=== PATIENT | female | born 1985 | race Hispanic/Latino ===

== ENCOUNTER 2017-08-10 22:02 | Inpatient (IN) | payer SELFPAY ==
[~2017-08-10] VITALS: Ht 172.7 cm; Wt 111.9 kg
[2017-08-10 22:35] LABS: BASOPHILS % (AUTO) 0.7 % (0.0-5.0); EOSINOPHILS % (AUTO) 0.7 % (0.0-8.0); HEMATOCRIT 35.3 % (36-48); LYMPHOCYTES % (AUTO) 13.4 % (21.0-51.0); MEAN CORPUSCULAR HEMOGLOBIN 23.4 pg (27.0-33.0); MEAN CORPUSCULAR HGB CONC 33.1 g/dL (32.0-36.0); MEAN CORPUSCULAR VOLUME 70.5 fL (79-99); MONOCYTES % (AUTO) 6.2 % (3.0-13.0); PLATELET COUNT (AUTO) 354 K/uL (130-400); RED BLOOD CELL COUNT(AUTO) 5.01 MIL/uL (4.00-5.50); RED CELL DISTRIBUTION WIDTH 14.4 % (11.0-15.5); WHITE BLOOD COUNT (AUTO) 8.5 K/uL (4.8-10.8)
[2017-08-10 22:43] LABS: APPEARANCE,URINE Cloudy (CLEAR); BILIRUBIN,URINE Negative (NEGATIVE); COLOR,URINE Yellow (YELLOW); GLUCOSE, URINE (UA) >=1000 mg/dL (NEGATIVE); KETONES,URINE Negative (NEGATIVE); LEUKOCYTE ESTERASE ,URINE Moderate (NEGATIVE); NITRATE,URINE Positive (NEGATIVE); OCCULT BLOOD,URINE Small (NEGATIVE); PROTEIN,URINE POS 1+ (NEGATIVE); UROBILINOGEN,URINE 0.2 mg/dL (0.2-1.0)
[2017-08-10 22:47] LABS: HCG,QUAL RESULT NEGATIVE (NEGATIVE)
[2017-08-10 22:51] LABS: CARBON DIOXIDE 25 mmol/L (21-32); CHLORIDE 96 mmol/L (101-111); GLOMERULAR FILTR. RATE CALC 67 mL/min (>60); GLUCOSE,RANDOM 387 mg/dL (70-105); POTASSIUM 3.7 mmol/L (3.5-5.1); SODIUM SERUM 130 mmol/L (136-145); UREA NITROGEN, BLOOD 9 mg/dL (7-18)
[2017-08-10 23:01] LABS: BACTERIA,URINE Many /HPF (None Seen); MUCUS,URINE Few LPF (None Seen); SQUAMOUS EPITHELIAL CELL,UR Rare /HPF (0-2); WBC,URINE TNTC /HPF (0-1)
[2017-08-10] MEDS ORDERED: SODIUM CHLORIDE 0.9% 1000ML 1,000 ML IV ONE (23:02)
[2017-08-10] MEDS ORDERED: CEFTRIAXONE SODIUM 1 GM ONE (23:02)
[2017-08-10 23:05] LABS: ALANINE AMINOTRANSFERASE 12 U/L (12-78); ALBUMIN 2.9 g/dL (3.5-5.0); AMYLASE 23 U/L (25-115); ASPARTATE AMINOTRANSFERASE 8 U/L (10-37); BILIRUBIN,TOTAL 0.4 mg/dL (0.2-1.0); CREATINE KINASE MB < 0.5 ng/mL (0.5-3.6); CREATINE KINASE, TOTAL 42 U/L (21-232); LIPASE 118 U/L (114-286)
[2017-08-11] MEDS ORDERED: KETOROLAC TROMETHAMINE 30MG/ML ONE
[2017-08-11] MEDS ORDERED: LEVOFLOXACIN 500 MG/D5W 100 ML 100 ML ONE (00:28)
[2017-08-11] MEDS ORDERED: ACETAMINOPHEN 325 MG TAB PO PRN (03:00)
[2017-08-11] MEDS ORDERED: MORPHINE SULFATE 4 MG/1ML SYG IV PRN (03:00)
[2017-08-11] MEDS ORDERED: ONDANSETRON HCL MDV 20ML 2 MG/ML VIAL IV PRN (03:00)
[2017-08-11] MEDS ORDERED: HYDRALAZINE HCL 20 MG/ML VIAL IV PRN (03:00)
[2017-08-11] MEDS ORDERED: GLUCAGON 1MG KIT 1 MG ML IM PRN (05:45)
[2017-08-11] MEDS ORDERED: DEXTROSE 50%-WATER 50 ML DISP.SYRIN IV PRN (05:45)
[2017-08-11] MEDS: INSULIN LISPRO 100 UNIT/ML 3ML SQ SCH ×4 (07:30→21:00)
[2017-08-11] MEDS ORDERED: CEFTRIAXONE SODIUM 1 GM IVP SCH (09:00)
[2017-08-11] MEDS ORDERED: CEFTRIAXONE 1GM/D5W 50ML 50 ML IV SCH (09:00)
[2017-08-11] MEDS ORDERED: METF10004 PO (09:35)
[2017-08-11] MEDS: SODIUM CHLORIDE 0.9% 1000ML 1,000 ML IV SCH ×3 (10:50→22:17)
[2017-08-11] MEDS ORDERED: CEFTRIAXONE SODIUM 1 GM ONE (11:19)
[2017-08-11 15:32] VITALS: BP 129/64
[2017-08-11 20:00] VITALS: BP 118/59
[2017-08-11 23:23] VITALS: BP 107/66
[2017-08-12] MEDS ORDERED: CEFTRIAXONE 1GM/D5W 50ML 50 ML IV SCH (02:00)
[2017-08-12 03:20] VITALS: BP 114/65
[2017-08-12] MEDS: CEFTRIAXONE SODIUM 1 GM IVP SCH (03:32)
[2017-08-12 04:39] LABS: BASOPHILS % (AUTO) 0.9 % (0.0-5.0); EOSINOPHILS % (AUTO) 5.2 % (0.0-8.0); HEMATOCRIT 31.5 % (36-48); LYMPHOCYTES % (AUTO) 30.1 % (21.0-51.0); MEAN CORPUSCULAR HEMOGLOBIN 23.3 pg (27.0-33.0); MEAN CORPUSCULAR HGB CONC 32.6 g/dL (32.0-36.0); MEAN CORPUSCULAR VOLUME 71.6 fL (79-99); MONOCYTES % (AUTO) 9.1 % (3.0-13.0); NEUTROPHILS % (AUTO) 54.7 % (40.0-77.0); NUCLEATED RED BLOOD CELLS 0.1 % (0.0-0.19); PLATELET COUNT (AUTO) 308 K/uL (130-400); RED CELL DISTRIBUTION WIDTH 14.2 % (11.0-15.5); WHITE BLOOD COUNT (AUTO) 7.8 K/uL (4.8-10.8)
[2017-08-12 05:08] LABS: CREATININE 0.7 mg/dL (0.5-1.5); POTASSIUM 3.6 mmol/L (3.5-5.1)
[2017-08-12] MEDS: INSULIN LISPRO 100 UNIT/ML 3ML SQ SCH ×4 (07:06→21:00)
[2017-08-12 08:31] VITALS: BP 104/60
[2017-08-12] MEDS: PANTOPRAZOLE SODIUM 40 MG TABLET.DR PO SCH (08:32)
[2017-08-12] MEDS: ENOXAPARIN SODIUM 30 MG/0.3 ML SQ SCH (08:33)
[2017-08-12] MEDS: SODIUM CHLORIDE 0.9% 1000ML 1,000 ML IV SCH ×2 (08:35→17:54)
[2017-08-12 12:09] VITALS: BP 116/69
[2017-08-12 16:27] VITALS: BP 123/70
[2017-08-12 19:58] VITALS: BP 127/65
[2017-08-13] VITALS: BP 96/62
[2017-08-13] MEDS: SODIUM CHLORIDE 0.9% 1000ML 1,000 ML IV SCH ×2 (01:06→10:06)
[2017-08-13] MEDS: CEFTRIAXONE SODIUM 1 GM IVP SCH (03:21)
[2017-08-13 04:34] VITALS: BP 104/58
[2017-08-13 04:57] LABS: CREATININE 0.7 mg/dL (0.5-1.5); POTASSIUM 3.3 mmol/L (3.5-5.1)
[2017-08-13] MEDS: INSULIN LISPRO 100 UNIT/ML 3ML SQ SCH ×3 (06:23→17:12)
[2017-08-13 08:16] VITALS: BP 105/56
[2017-08-13] MEDS: ENOXAPARIN SODIUM 30 MG/0.3 ML SQ SCH (09:00)
[2017-08-13] MEDS: PANTOPRAZOLE SODIUM 40 MG TABLET.DR PO SCH (10:05)
[2017-08-13] MEDS ORDERED: LIDOCAINE HCL-MPF 1% 2ML VIAL IVP PRN (11:15)
[2017-08-13] MEDS ORDERED: POTASSIUM CHLORIDE 20MEQ/100ML 100 ML IV PRN (11:15)
[2017-08-13] MEDS ORDERED: POTASSIUM CHLORIDE 10% ELIXIR 20 MEQ/15 ML UDCUP PO PRN (11:15)
[2017-08-13] MEDS ORDERED: LEVOFLOXACIN 500 MG/D5W 100 ML 100 ML IV SCH (11:15)
[2017-08-13 12:05] VITALS: BP 94/49
[2017-08-13] MEDS: POTASSIUM CHLORIDE 20 MEQ ERTAB PO PRN ×2 (13:20→17:05)
[2017-08-13 17:11] VITALS: BP 113/68
[2017-08-14] MEDS ORDERED: METFORMIN HCL 500 MG TABLET PO SCH (09:00)
== END 2017-08-13 18:31 | disposition home or self-care (01) | DRG 372 ==
LOC: EDH 22:02 → EDHIP 22:03 → 3CH 08-11 15:05
PROVIDERS: ADMIT Family Medicine; ATTEND Family Medicine
DX: A04.4 Other intestinal Escherichia coli infections (principal); E87.1 Hypo-osmolality and hyponatremia; E11.65 Type 2 diabetes mellitus with hyperglycemia; N30.80 Other cystitis without hematuria; E66.01 Morbid (severe) obesity due to excess calories; E87.6 Hypokalemia; Z68.37 Body mass index [BMI] 37.0-37.9, adult
CPT/HCPCS: 36415; 74176; 80048; 80053; 81001; 81025; 82150; 82550; 82553; 82948; 83690; 84484; 85025; 87088; 87186; 87324; 87507; 93005; A4218; J0696; J1650; J1885; J1956; J7030

== ENCOUNTER 2018-03-15 14:05 | Emergency (ER) | payer SELFPAY ==
[~2018-03-15 14:05] MED LIST: METF-446 PO
[2018-03-15] MEDS ORDERED: KETOROLAC TROMETHAMINE 60 MG/2 ML VIAL ONE (14:44)
== END 2018-03-15 15:45 | disposition home or self-care (01) ==
LOC: EDH 14:05
DX: S83.8X1A Sprain of other specified parts of right knee, initial encounter (principal); E11.9 Type 2 diabetes mellitus without complications; Z90.49 Acquired absence of other specified parts of digestive tract; X58.XXXA Exposure to other specified factors, initial encounter; Y93.6A Activity, physical games generally associated with school recess, summer camp and children; Y92.098 Other place in other non-institutional residence as the place of occurrence of the external cause; Y99.8 Other external cause status
CPT/HCPCS: 73562; 81025; 96372; 99284; J1885

== ENCOUNTER 2019-02-21 19:06 | Emergency (ER) | payer OTHER ==
[2019-02-21] MEDS ORDERED: ACETAMINOPHEN 325 MG TAB ONE (19:15)
[2019-02-21 19:26] LABS: APPEARANCE,URINE Clear (CLEAR); BILIRUBIN,URINE Negative (NEGATIVE); COLOR,URINE Yellow (YELLOW); GLUCOSE, URINE (UA) >=1000 mg/dL (NEGATIVE); KETONES,URINE Negative (NEGATIVE); LEUKOCYTE ESTERASE ,URINE Small (NEGATIVE); NITRATE,URINE Positive (NEGATIVE); OCCULT BLOOD,URINE Trace (NEGATIVE); PROTEIN,URINE Trace mg/dL (NEGATIVE)
[2019-02-21 19:31] LABS: BASOPHILS % (AUTO) 0.6 % (0.0-5.0); EOSINOPHILS % (AUTO) 2.8 % (0.0-8.0); HEMATOCRIT 41.3 % (36-48); LYMPHOCYTES % (AUTO) 15.6 % (21.0-51.0); MEAN CORPUSCULAR HEMOGLOBIN 26.3 pg (27.0-33.0); MEAN CORPUSCULAR HGB CONC 33.1 g/dL (32.0-36.0); MEAN CORPUSCULAR VOLUME 79.5 fL (79-99); NUCLEATED RED BLOOD CELLS 0.1 % (0.0-0.19); PLATELET COUNT (AUTO) 367 K/uL (130-400); RED BLOOD CELL COUNT(AUTO) 5.19 MIL/uL (4.00-5.50); RED CELL DISTRIBUTION WIDTH 13.8 % (11.0-15.5); WHITE BLOOD COUNT (AUTO) 15.5 K/uL (4.8-10.8)
[2019-02-21] MEDS ORDERED: MORPHINE SULFATE 4 MG/1ML SYG ONE (19:37)
[2019-02-21] MEDS ORDERED: ONDANSETRON HCL 4 MG/2 ML VIAL ONE (19:37)
[2019-02-21] MEDS ORDERED: SODIUM CHLORIDE 0.9% 1000ML 1,000 ML IV ONE (19:37)
[2019-02-21 19:46] LABS: HCG,QUAL RESULT NEGATIVE (NEGATIVE)
[2019-02-21 19:56] LABS: CREATININE 0.8 mg/dL (0.5-1.5); POTASSIUM 3.7 mmol/L (3.5-5.1)
[2019-02-21 20:13] LABS: BACTERIA,URINE Few /HPF (None Seen); SQUAMOUS EPITHELIAL CELL,UR Rare /HPF (0-2)
[2019-02-21 20:17] LABS: ALBUMIN 3.2 g/dL (3.5-5.0)
[2019-02-21] MEDS ORDERED: INSULIN HUMULIN R 100 UNIT/ML 3ML ONE (20:23)
[2019-02-21 20:28] LABS: BILIRUBIN,TOTAL 0.5 mg/dL (0.2-1.0); TOTAL PROTEIN, SERUM 8.8 g/dL (6.0-8.3)
[2019-02-21] MEDS ORDERED: CEFTRIAXONE SODIUM 1 GM ONE (21:10)
[2019-02-21] MEDS ORDERED: METRONIDAZOLE 500 MG TABLET ONE (21:22)
[2019-02-21] MEDS ORDERED: LEVOFLOXACIN 500 MG TABLET ONE (21:25)
== END 2019-02-21 21:55 | disposition home or self-care (01) ==
LOC: EDH 19:06
DX: K57.92 Diverticulitis of intestine, part unspecified, without perforation or abscess without bleeding (principal); E11.9 Type 2 diabetes mellitus without complications; R10.32 Left lower quadrant pain; Z90.49 Acquired absence of other specified parts of digestive tract; Z98.890 Other specified postprocedural states
CPT/HCPCS: 36415; 74176; 80053; 81001; 81025; 85025; 87077; 87088; 87186; 96374; 96375; 99285; J0696; J1815; J2270; J2405; J7030

== ENCOUNTER 2022-03-25 23:33 | Emergency (ER) | payer OTHER ==
[~2022-03-25] VITALS: Ht 152.4 cm; Wt 99.8 kg
[~2022-03-25 23:33] MED LIST changes: +GLIP5TAB11 PO; +IBUP-2077 PO; +LEVO-70 PO; +LISI2.5T13 PO; +METF-445 PO; -METF-446 PO; +OSEL75 PO
[2022-03-26] MEDS ORDERED: IBUP-2076 PO (00:52)
[2022-03-26 01:03] VITALS: BP 128/72
[2022-03-26 01:18] LABS: APPEARANCE,URINE CLOUDY (CLEAR); BILIRUBIN,URINE NEGATIVE (NEGATIVE); COLOR,URINE LIGHT-YELLOW (YELLOW); GLUCOSE, URINE (UA) >=1000 mg/dL (NEGATIVE); KETONES,URINE 20 mg/dL (NEGATIVE); LEUKOCYTE ESTERASE ,URINE 500 Leu/uL (NEGATIVE); NITRATE,URINE NEGATIVE (NEGATIVE); PROTEIN,URINE 20 mg/dL (NEGATIVE); UROBILINOGEN,URINE 0.2 mg/dL (0.2-1.0)
[2022-03-26 01:20] LABS: MUCUS,URINE RARE LPF (None Seen); SQUAMOUS EPITHELIAL CELL,UR FEW /HPF (0-2); WBC,URINE TNTC /HPF (0-1)
== END 2022-03-26 01:43 | disposition home or self-care (01) ==
LOC: EDH 23:33
DX: S80.02XA Contusion of left knee, initial encounter (principal); S80.01XA Contusion of right knee, initial encounter; E11.65 Type 2 diabetes mellitus with hyperglycemia; Z20.822 Contact with and (suspected) exposure to COVID-19; Z79.84 Long term (current) use of oral hypoglycemic drugs; Z79.899 Other long term (current) drug therapy; Z90.89 Acquired absence of other organs; Z90.49 Acquired absence of other specified parts of digestive tract; Z98.890 Other specified postprocedural states; Y08.89XA Assault by other specified means, initial encounter; Y93.89 Activity, other specified; Y92.89 Other specified places as the place of occurrence of the external cause; Y99.8 Other external cause status
CPT/HCPCS: 99283; 87635; 87088; 87804 ×2; 82948; 81001; C9803

== ENCOUNTER 2022-08-07 16:53 | Inpatient (IN) | payer OTHER ==
[~2022-08-07] VITALS: Ht 152.4 cm; Wt 107.6 kg
[~2022-08-07 16:53] MED LIST changes: +IBUP-2076 PO; -IBUP-2077 PO; -LEVO-70 PO; -OSEL75 PO
[2022-08-07 18:16] LABS: APPEARANCE,URINE TURBID (CLEAR); BILIRUBIN,URINE NEGATIVE (NEGATIVE); COLOR,URINE LIGHT-ORANGE (YELLOW); GLUCOSE, URINE (UA) >=1000 mg/dL (NEGATIVE); KETONES,URINE 20 mg/dL (NEGATIVE); LEUKOCYTE ESTERASE ,URINE 500 Leu/uL (NEGATIVE); NITRATE,URINE NEGATIVE (NEGATIVE); OCCULT BLOOD,URINE LARGE (NEGATIVE); PH,URINE 5.5 (5.0-8.0); PROTEIN,URINE 50 mg/dL (NEGATIVE); UROBILINOGEN,URINE 0.2 mg/dL (0.2-1.0)
[2022-08-07 18:23] LABS: BACTERIA,URINE MOD /HPF (None Seen); SQUAMOUS EPITHELIAL CELL,UR MOD /HPF (0-2); WBC,URINE TNTC /HPF (0-1)
[2022-08-07 18:34] LABS: BASOPHILS % (AUTO) 0.5 % (0.0-5.0); EOSINOPHILS % (AUTO) 0.3 % (0.0-8.0); HEMATOCRIT 43.7 % (36-48); LYMPHOCYTES % (AUTO) 11.1 % (21.0-51.0); MEAN CORPUSCULAR HGB CONC 33.4 g/dL (32.0-36.0); MEAN CORPUSCULAR VOLUME 80.9 fL (79-99); NEUTROPHILS % (AUTO) 79.4 % (40.0-77.0); PLATELET COUNT (AUTO) 329 K/uL (130-400)
[2022-08-07 18:46] LABS: CARBON DIOXIDE 30 mmol/L (21-32); CHLORIDE 95 mmol/L (101-111); CREATININE 1.1 mg/dL (0.5-1.5); GLOMERULAR FILTR. RATE CALC 66 mL/min (>90); GLUCOSE,RANDOM 367 mg/dL (70-105); POTASSIUM 3.8 mmol/L (3.5-5.1); SODIUM SERUM 133 mmol/L (136-145); UREA NITROGEN, BLOOD 10 mg/dL (7-18)
[2022-08-07 18:50] LABS: ALANINE AMINOTRANSFERASE 19 U/L (12-78); ALBUMIN 3.1 g/dL (3.5-5.0); ASPARTATE AMINOTRANSFERASE 10 U/L (10-37); TOTAL PROTEIN, SERUM 8.5 g/dL (6.0-8.3)
[2022-08-07 18:51] LABS: LIPASE < 50 U/L (114-286)
[2022-08-07] MEDS ORDERED: INSULIN HUMULIN R 100 UNIT/ML 3ML IV ONE (19:30)
[2022-08-07] MEDS ORDERED: CEFTRIAXONE 1G VIAL IVPB ONE (19:30)
[2022-08-07] MEDS ORDERED: 0.9%NACL 1000ML 1,000 ML IV ONE (19:30)
[2022-08-07 20:00] LABS: ABG OXYGEN SATURATION 21.4 % (95.0-99.0); BASE EXCESS,VENOUS BLOOD GAS 2.4 (-2.0-3.0); HCO3,VENOUS BLOOD GAS 27.4 (21.0-28.0); PCO2,VENOUS BLOOD GAS 44 (32-45); PH,VENOUS BLOOD GAS 7.416 (7.350-7.450)
[2022-08-07] MEDS ORDERED: ONDANSETRON 4MG INJ IV PRN (22:30)
[2022-08-07] MEDS ORDERED: LACTULOSE 20 GM/30 ML UDCUP PO PRN (22:30)
[2022-08-07] MEDS ORDERED: ACETAMINOPHEN 325 MG TAB PO PRN ×2 (22:30)
[2022-08-07] MEDS: 0.9%NACL 1000ML 1,000 ML IV SCH (22:44)
[2022-08-07 23:02] VITALS: BP 99/63
[2022-08-07] MEDS: CEFTRIAXONE 2GM VIAL IVPB SCH (23:39)
[2022-08-08] MEDS ORDERED: 0.9%NACL 1000ML 1,365 ML IV ONE (00:30)
[2022-08-08 03:36] VITALS: BP 130/72
[2022-08-08 05:05] LABS: BASOPHILS % (AUTO) 0.5 % (0.0-5.0); EOSINOPHILS % (AUTO) 0.4 % (0.0-8.0); HEMATOCRIT 36.1 % (36-48); LYMPHOCYTES % (AUTO) 13.6 % (21.0-51.0); MEAN CORPUSCULAR HEMOGLOBIN 27.2 pg (27.0-33.0); MEAN CORPUSCULAR HGB CONC 33.5 g/dL (32.0-36.0); MEAN CORPUSCULAR VOLUME 81.1 fL (79-99); MONOCYTES % (AUTO) 11.2 % (3.0-13.0); NEUTROPHILS % (AUTO) 73.7 % (40.0-77.0); PLATELET COUNT (AUTO) 288 K/uL (130-400); RED BLOOD CELL COUNT(AUTO) 4.45 MIL/uL (4.00-5.50); WHITE BLOOD COUNT (AUTO) 9.8 K/uL (4.8-10.8)
[2022-08-08 05:23] LABS: CREATININE 0.6 mg/dL (0.5-1.5); POTASSIUM 3.4 mmol/L (3.5-5.1)
[2022-08-08] MEDS: INSULIN HUMULIN R 100 UNIT/ML 3ML SQ SCH ×6 (06:14→21:24)
[2022-08-08 07:41] VITALS: BP 106/65
[2022-08-08] MEDS ORDERED: KCL 20 MEQ ERTAB PO ONE (08:35)
[2022-08-08] MEDS: 0.9%NACL 1000ML 1,000 ML IV SCH (08:36)
[2022-08-08] MEDS: FAMOTIDINE 20MG TAB PO SCH ×2 (08:37→21:18)
[2022-08-08] MEDS ORDERED: POTASSIUM CHLORIDE 20MEQ/100ML 100 ML IV PRN (09:00)
[2022-08-08] MEDS ORDERED: POTASSIUM CHLORIDE 10% ELIXIR 20 MEQ/15 ML UDCUP PO PRN (09:00)
[2022-08-08] MEDS ORDERED: METF-446 PO (10:44)
[2022-08-08 10:47] LABS: MAGNESIUM 1.7 mg/dL (1.80-2.40)
[2022-08-08 11:04] LABS: HEMOGLOBIN A1C 13.6 % (4.0-6.0)
[2022-08-08 11:15] VITALS: BP 100/70
[2022-08-08] MEDS: KCL 20 MEQ ERTAB PO PRN (11:44)
[2022-08-08] MEDS ORDERED: GLUCAGON 1MG KIT 1 MG ML IM PRN (14:30)
[2022-08-08] MEDS ORDERED: DEXTROSE 50%-WATER 50 ML DISP.SYRIN IV PRN (14:30)
[2022-08-08 17:05] VITALS: BP 108/46
[2022-08-08 20:00] VITALS: BP 118/50
[2022-08-08] MEDS ORDERED: INSULIN GLARGINE 100 UNITS/ML 10 ML VIAL SQ SCH (21:00)
[2022-08-08] MEDS: CEFTRIAXONE 2GM VIAL IVPB SCH (22:04)
[2022-08-09] VITALS: BP 128/66
[2022-08-09 04:00] VITALS: BP 114/65
[2022-08-09 04:40] LABS: BASOPHILS % (AUTO) 0.7 % (0.0-5.0); EOSINOPHILS % (AUTO) 3.7 % (0.0-8.0); HEMATOCRIT 34.3 % (36-48); LYMPHOCYTES % (AUTO) 24.9 % (21.0-51.0); MEAN CORPUSCULAR HEMOGLOBIN 27.5 pg (27.0-33.0); MEAN CORPUSCULAR HGB CONC 33.2 g/dL (32.0-36.0); MEAN CORPUSCULAR VOLUME 82.9 fL (79-99); NEUTROPHILS % (AUTO) 57.3 % (40.0-77.0); PLATELET COUNT (AUTO) 260 K/uL (130-400); RED BLOOD CELL COUNT(AUTO) 4.14 MIL/uL (4.00-5.50); RED CELL DISTRIBUTION WIDTH 12.7 % (11.0-15.5); WHITE BLOOD COUNT (AUTO) 8.5 K/uL (4.8-10.8)
[2022-08-09 05:00] LABS: CREATININE 0.6 mg/dL (0.5-1.5); POTASSIUM 3.4 mmol/L (3.5-5.1)
[2022-08-09] MEDS: KCL 20 MEQ ERTAB PO PRN (06:01)
[2022-08-09] MEDS: INSULIN HUMULIN R 100 UNIT/ML 3ML SQ SCH ×4 (06:02→13:06)
[2022-08-09 08:00] VITALS: BP 107/57
[2022-08-09] MEDS: FAMOTIDINE 20MG TAB PO SCH (08:21)
[2022-08-09] MEDS ORDERED: ENOXAPARIN SODIUM 40 MG/0.4 ML SYRINGE SQ SCH (09:00)
[2022-08-09] MEDS ORDERED: AMOX1TAB16 PO (10:56)
[2022-08-09] MEDS ORDERED: TIRZ2.5P SQ (10:56)
[2022-08-09] MEDS ORDERED: LISI2.5T13 PO (10:56)
[2022-08-09] MEDS ORDERED: METF-446 PO (10:56)
[2022-08-09] MEDS ORDERED: ATOR10TA69 PO (10:56)
[2022-08-09] MEDS ORDERED: INSU3INS3 SQ (10:56)
[2022-08-09 11:44] VITALS: BP 100/61
== END 2022-08-09 14:05 | disposition home or self-care (01) | DRG 872 ==
LOC: EDH 16:53 → EDHIP 16:54 → 4BH 23:11
PROVIDERS: ADMIT Hospitalist; ATTEND Hospitalist
DX: A41.9 Sepsis, unspecified organism (principal); E87.1 Hypo-osmolality and hyponatremia; N12 Tubulo-interstitial nephritis, not specified as acute or chronic; E87.20 Acidosis, unspecified; E44.1 Mild protein-calorie malnutrition; Z68.42 Body mass index [BMI] 45.0-49.9, adult; E11.65 Type 2 diabetes mellitus with hyperglycemia; E66.01 Morbid (severe) obesity due to excess calories; E83.42 Hypomagnesemia; E87.6 Hypokalemia; Z79.4 Long term (current) use of insulin
CPT/HCPCS: 36415; 36600; 80048; 80053; 80061; 81001; 81025; 82010; 82803; 82948; 83036; 83605; 83690; 83735; 85025; 87088; G0378; J0696; J1650; J1815; J7030

== ENCOUNTER 2023-03-14 17:42 | Emergency (ER) | payer OTHER ==
[~2023-03-14] VITALS: Ht 152.4 cm; Wt 99.8 kg
[~2023-03-14 17:42] MED LIST changes: +AMOX1TAB16 PO; +ATOR10TA69 PO; -GLIP5TAB11 PO; -IBUP-2076 PO; +INSU3INS3 SQ; -METF-445 PO; +METF-446 PO; +TIRZ2.5P SQ
[2023-03-14 18:21] LABS: BASOPHILS # (AUTO) 0.05 K/uL (0.00-0.20); BASOPHILS % (AUTO) 0.4 % (0.0-5.0); EOSINOPHILS # (AUTO) 0.01 K/uL (0.00-0.70); EOSINOPHILS % (AUTO) 0.1 % (0.0-8.0); HEMATOCRIT 38.5 % (36-48); IMMATURE GRANULOCYTE ABSOLUTE 0.07 K/uL (0-1); LYMPHOCYTES # (AUTO) 1.3 K/uL (1.0-4.8); LYMPHOCYTES % (AUTO) 11.3 % (21.0-51.0); MEAN CORPUSCULAR HEMOGLOBIN 26.9 pg (27.0-33.0); MEAN CORPUSCULAR HGB CONC 34.8 g/dL (32.0-36.0); MEAN CORPUSCULAR VOLUME 77.2 fL (79-99); MONOCYTES # (AUTO) 1.5 K/uL (0.1-1.0); MONOCYTES % (AUTO) 12.7 % (3.0-13.0); NEUTROPHILS # (AUTO) 8.6 K/uL (1.8-7.7); NEUTROPHILS % (AUTO) 74.9 % (40.0-77.0); PLATELET COUNT (AUTO) 283 K/uL (130-400); RED BLOOD CELL COUNT(AUTO) 4.99 MIL/uL (4.00-5.50); RED CELL DISTRIBUTION WIDTH 12.3 % (11.0-15.5); WHITE BLOOD COUNT (AUTO) 11.5 K/uL (4.8-10.8)
[2023-03-14 18:32] LABS: APPEARANCE,URINE CLEAR (CLEAR); BILIRUBIN,URINE NEGATIVE (NEGATIVE); COLOR,URINE LIGHT-YELLOW (YELLOW); GLUCOSE, URINE (UA) >=1000 mg/dL (NEGATIVE); KETONES,URINE 60 mg/dL (NEGATIVE); LEUKOCYTE ESTERASE ,URINE 250 Leu/uL (NEGATIVE); NITRATE,URINE NEGATIVE (NEGATIVE); OCCULT BLOOD,URINE LARGE (NEGATIVE); PROTEIN,URINE 100 mg/dL (NEGATIVE); UROBILINOGEN,URINE 0.2 mg/dL (0.2-1.0)
[2023-03-14 18:33] LABS: ALBUMIN 2.2 g/dL (3.5-5.0); BILIRUBIN,TOTAL 0.8 mg/dL (0.2-1.0); CREATININE 1.5 mg/dL (0.5-1.5); TOTAL PROTEIN, SERUM 8.7 g/dL (6.0-8.3)
[2023-03-14 18:34] LABS: ADD UA MICROSCOPIC YES; HCG,QUALITATIVE URINE NEGATIVE (NEGATIVE)
[2023-03-14 18:36] LABS: BACTERIA,URINE FEW /HPF (None Seen); SQUAMOUS EPITHELIAL CELL,UR MOD /HPF (0-2); WBC,URINE 26-50 /HPF (0-1)
[2023-03-14] MEDS ORDERED: INSULIN HUMULIN R 100 UNIT/ML 3ML SQ ONE (19:00)
[2023-03-14] MEDS ORDERED: CEFTRIAXONE 1G VIAL IVPB ONE (19:00)
[2023-03-14] MEDS ORDERED: POTASSIUM BICARB/CIT AC 25 MEQ TABLET.EFF PO ONE (19:00)
[2023-03-14] MEDS ORDERED: 0.9%NACL 1000ML 1,000 ML IV ONE ×2 (19:00→20:30)
[2023-03-14 19:04] LABS: COVID19 (SARS ANTIGEN RAPID) PRESUMPTIVE NEGATIVE (NEGATIVE); INFLUENZA TYPE A Negative For Type A (NEGATIVE); INFLUENZA TYPE B Negative For Type B (NEGATIVE)
[2023-03-14] MEDS ORDERED: ONDANSETRON 4MG INJ IVP ONE (19:30)
[2023-03-14] MEDS ORDERED: ONDA4TAB10 PO (20:30)
[2023-03-14 20:33] VITALS: BP 112/64; PULSE 90; RESP 18; O2SAT 97
== END 2023-03-14 21:35 | disposition home or self-care (01) ==
LOC: EDH 17:42
DX: N39.0 Urinary tract infection, site not specified (principal); E11.65 Type 2 diabetes mellitus with hyperglycemia; A41.9 Sepsis, unspecified organism; Z20.822 Contact with and (suspected) exposure to COVID-19; Z79.84 Long term (current) use of oral hypoglycemic drugs; Z79.899 Other long term (current) drug therapy; Z98.890 Other specified postprocedural states; Z90.49 Acquired absence of other specified parts of digestive tract
CPT/HCPCS: 99284; 96365; 96366; 96375; 87426; 82150; 80053; 83690; 85025; 87088; 87804 ×2; 82948; 81001; 81025; 36415; 96372; J1815; J7030; J0696; J2405

== ENCOUNTER 2023-03-17 19:49 | Emergency (ER) | payer OTHER ==
[~2023-03-17] VITALS: Ht 152.4 cm; Wt 103.9 kg
[~2023-03-17 19:49] MED LIST changes: +ONDA4TAB10 PO
[2023-03-17 21:01] LABS: BASOPHILS # (AUTO) 0.08 K/uL (0.00-0.20); BASOPHILS % (AUTO) 0.7 % (0.0-5.0); EOSINOPHILS # (AUTO) 0.27 K/uL (0.00-0.70); EOSINOPHILS % (AUTO) 2.5 % (0.0-8.0); HEMATOCRIT 36.4 % (36-48); IMMATURE GRANULOCYTE ABSOLUTE 0.09 K/uL (0-1); LYMPHOCYTES # (AUTO) 1.7 K/uL (1.0-4.8); LYMPHOCYTES % (AUTO) 15.3 % (21.0-51.0); MEAN CORPUSCULAR HEMOGLOBIN 26.8 pg (27.0-33.0); MEAN CORPUSCULAR HGB CONC 34.1 g/dL (32.0-36.0); MEAN CORPUSCULAR VOLUME 78.8 fL (79-99); MONOCYTES # (AUTO) 0.8 K/uL (0.1-1.0); MONOCYTES % (AUTO) 7.3 % (3.0-13.0); NEUTROPHILS # (AUTO) 7.9 K/uL (1.8-7.7); NEUTROPHILS % (AUTO) 73.4 % (40.0-77.0); PLATELET COUNT (AUTO) 467 K/uL (130-400); RED BLOOD CELL COUNT(AUTO) 4.62 MIL/uL (4.00-5.50); RED CELL DISTRIBUTION WIDTH 12.9 % (11.0-15.5); WHITE BLOOD COUNT (AUTO) 10.8 K/uL (4.8-10.8)
[2023-03-17 21:04] LABS: ADD UA MICROSCOPIC YES; APPEARANCE,URINE CLEAR (CLEAR); BILIRUBIN,URINE NEGATIVE (NEGATIVE); COLOR,URINE LIGHT-YELLOW (YELLOW); GLUCOSE, URINE (UA) >=1000 mg/dL (NEGATIVE); KETONES,URINE 40 mg/dL (NEGATIVE); LEUKOCYTE ESTERASE ,URINE 75 Leu/uL (NEGATIVE); NITRATE,URINE NEGATIVE (NEGATIVE); OCCULT BLOOD,URINE MODERATE (NEGATIVE); PROTEIN,URINE 70 mg/dL (NEGATIVE); UROBILINOGEN,URINE 0.2 mg/dL (0.2-1.0)
[2023-03-17 21:07] LABS: BACTERIA,URINE RARE /HPF (None Seen); SQUAMOUS EPITHELIAL CELL,UR MOD /HPF (0-2); WBC,URINE 51-100 /HPF (0-1)
[2023-03-17 21:11] LABS: BILIRUBIN,TOTAL 0.6 mg/dL (0.2-1.0); CREATININE 1.3 mg/dL (0.5-1.5); TOTAL PROTEIN, SERUM 8.8 g/dL (6.0-8.3)
[2023-03-17 21:19] LABS: POTASSIUM 2.6 mmol/L (3.5-5.1)
[2023-03-17 21:24] LABS: BAND NEUTROPHILS % (MANUAL) 4 % (0-2); EOSINOPHILS % (MANUAL) 4 % (1-6); LYMPHOCYTES % (MANUAL) 21 % (22-44); MONOCYTES % (MANUAL) 7 % (2-9); SEGMENTED NEUTROPHILS % 64 % (40-70); TOTAL CELLS COUNTED 100
[2023-03-17 21:25] LABS: MAN.DIFF COMMENT-IMPRESSION MANUAL DIFFERENTIAL; PLATELET MORPHOLOGY COMMENT SLIGHT INCREASED; WBC MORPHOLOGY CONSISTENT W/DIFF
[2023-03-17] MEDS ORDERED: POTASSIUM BICARB/CIT AC 25 MEQ TABLET.EFF PO ONE (21:30)
[2023-03-17] MEDS ORDERED: CEFU500T67 PO (22:48)
[2023-03-17] MEDS ORDERED: ATOR10TA69 PO (22:48)
[2023-03-17] MEDS ORDERED: LISI2.5T13 PO (22:48)
[2023-03-17] MEDS ORDERED: INSU3INS3 SQ (22:48)
[2023-03-17] MEDS ORDERED: METF-446 PO (22:48)
[2023-03-17] MEDS ORDERED: POTA-81 PO (22:50)
[2023-03-17 23:07] VITALS: BP 142/68; PULSE 70; RESP 18; O2SAT 97
== END 2023-03-17 23:00 | disposition home or self-care (01) ==
LOC: EDH 19:49
DX: N39.0 Urinary tract infection, site not specified (principal); E11.65 Type 2 diabetes mellitus with hyperglycemia; Z90.49 Acquired absence of other specified parts of digestive tract; Z90.89 Acquired absence of other organs; Z79.899 Other long term (current) drug therapy; Z98.890 Other specified postprocedural states
CPT/HCPCS: 36415; 80053; 81001; 81025; 82010; 83605; 85025